=== PATIENT | female | born 1975 | race Caucasian/White ===

== ENCOUNTER 2020-10-14 13:46 | Emergency (ER) | payer OTHER ==
[2020-10-14 16:47] LABS: HEMOGLOBIN 12.3 gm/dl (12.3-15.3); RED BLOOD COUNT 4.19 M/UL (4.00-5.10); WHITE BLOOD COUNT 10.2 K/UL (4.5-11.0)
[2020-10-14 17:10] LABS: BUN/CREATININE RATIO 14 (0-10)
[2020-10-14] MEDS ORDERED: LOPRESSOR 25 MG25 MG PO (19:31)
== END 2020-10-14 20:09 | disposition home or self-care (01) ==
LOC: ER1 13:46
PROVIDERS: Preventive Medicine Occupational Medicine
DX: R00.2 Palpitations (principal); I10 Essential (primary) hypertension
CPT/HCPCS: 36415; 70450; 71045; 80053; 81001; 82550; 82553; 83690; 83874; 83880; 84484; 84703; 85025; 85652; 86140; 87086; 93005; 99285; J7030

== ENCOUNTER 2021-04-23 19:36 | Emergency (ER) | payer OTHER ==
[~2021-04-23 19:36] MED LIST: LOPRESSOR 25 MG25 MG PO
[2021-04-23 20:08] LABS: RED BLOOD COUNT 4.12 M/UL (4.00-5.10); WHITE BLOOD COUNT 10.8 K/UL (4.5-11.0)
[2021-04-23 20:29] LABS: BUN/CREATININE RATIO 17 (0-10)
[2021-04-24] MEDS ORDERED: ZOFRAN ODT 4 MG4 MG PO (01:00)
[2021-04-24] MEDS ORDERED: PEPCID20 MG PO (01:00)
[2021-04-24] MEDS ORDERED: BENTYL 20MG TAB20 MG PO (01:00)
== END 2021-04-24 01:09 | disposition home or self-care (01) ==
LOC: ER1 19:36
PROVIDERS: Physician Assistant Medical
DX: R10.13 Epigastric pain (principal); R10.12 Left upper quadrant pain; R11.0 Nausea; J44.9 Chronic obstructive pulmonary disease, unspecified; I10 Essential (primary) hypertension; Z90.49 Acquired absence of other specified parts of digestive tract
CPT/HCPCS: 80053; 81001; 83690; 85025; 99284

== ENCOUNTER → 2021-05-04 | Outpatient (CLI) | payer OTHER ==
[~2021-05-04] MED LIST changes: +BENTYL 20MG TAB20 MG PO; +PEPCID20 MG PO; +ZOFRAN ODT 4 MG4 MG PO
== END ==
LOC: EXRD 13:26
DX: M25.562 Pain in left knee (principal)
CPT/HCPCS: 73564

== ENCOUNTER → 2021-12-25 | Outpatient (CLI) | payer OTHER ==
[~2021-12-25] MED LIST changes: +PROTONIX40 MG PO
== END ==
LOC: SLEEP 13:56
DX: R06.83 Snoring (principal); R06.02 Shortness of breath; R29.818 Other symptoms and signs involving the nervous system; G47.33 Obstructive sleep apnea (adult) (pediatric)
CPT/HCPCS: 95810

== ENCOUNTER 2022-03-13 12:27 | Emergency (ER) | payer OTHER ==
[2022-03-13 12:51] LABS: HEMOGLOBIN 11.9 gm/dl (12.3-15.3); RED BLOOD COUNT 4.09 M/UL (4.00-5.10); WHITE BLOOD COUNT 9.1 K/UL (4.5-11.0)
[2022-03-13 13:23] LABS: BUN/CREATININE RATIO 19 (0-10)
== END 2022-03-13 14:11 | disposition home or self-care (01) ==
LOC: ER1 12:27
PROVIDERS: Emergency Medicine
DX: R00.2 Palpitations (principal); I10 Essential (primary) hypertension; J45.909 Unspecified asthma, uncomplicated; Z90.89 Acquired absence of other organs
CPT/HCPCS: 71045; 80053; 80307; 82550; 82553; 83735; 84439; 84443; 84484; 84703; 85025; 93005; 99285

== ENCOUNTER 2022-03-22 12:11 | Emergency (ER) | payer OTHER ==
[2022-03-22 13:06] LABS: HEMOGLOBIN 12.2 gm/dl (12.3-15.3); RED BLOOD COUNT 4.24 M/UL (4.00-5.10); WHITE BLOOD COUNT 8.2 K/UL (4.5-11.0)
[2022-03-22 13:30] LABS: BUN/CREATININE RATIO 16 (0-10)
== END 2022-03-22 17:35 | disposition home or self-care (01) ==
LOC: ER1 12:11
PROVIDERS: Nurse Practitioner
DX: R06.02 Shortness of breath (principal); R31.9 Hematuria, unspecified; R25.2 Cramp and spasm; Z20.822 Contact with and (suspected) exposure to COVID-19; J44.9 Chronic obstructive pulmonary disease, unspecified; I10 Essential (primary) hypertension; Z87.891 Personal history of nicotine dependence; Z79.899 Other long term (current) drug therapy
CPT/HCPCS: 0240U; 71045; 80053; 80307; 81001; 82550; 82553; 83880; 84484; 85025; 85379; 93005; 99285

== ENCOUNTER 2022-05-28 10:14 | Emergency (ER) | payer OTHER | END 2022-05-28 13:55 | disposition home or self-care (01) | LOC: ER1 10:14 | DX: R07.9 Chest pain, unspecified (principal) | CPT/HCPCS: 93005; 99281 ==

== ENCOUNTER → 2022-05-30 | Outpatient (CLI) | payer OTHER | LOC: SLEEP 10:02 | DX: G47.33 Obstructive sleep apnea (adult) (pediatric) (principal) | CPT/HCPCS: 95811 ==